=== PATIENT | female | born 1980 | race Caucasian/White ===

== ENCOUNTER 2016-08-25 04:55 | Emergency (ER) | payer OTHER ==
[~2016-08-25 04:55] MED LIST: BACTRIM DS TABL1 TA1 PO; CIPRO PO; CIPRO XR 500 M500 MG PO; CITRATE OF MAG300 ML PO; CORTISPORIN-TC10 M1 AD; DOCUSATE SODIU100 MG PO; FLEXERIL10 MG PO; IMPLANON68 MG/IMPL; KEFLEX500 M2 PO; LORTAB 5/500 TA1 TA1 PO; MIRALAX17 GM PO; NO MEDICATIONS; ORUDIS75 M1 DOB; ORUDIS75 M1 PO; PERCOCET PO; PHENERGAN25 M1 PO; PHENERGAN25 MG PO; SEROQUEL PO; TYLOX 5/500 CAP1 CAP PO; VOLTAREN50 MG PO; VOLTAREN75 MG PO; [UNRECOGNIZED DRUG - REMARK]
== END 2016-08-25 05:02 | disposition home or self-care (01) ==
LOC: SED 04:55
DX: J20.9 Acute bronchitis, unspecified (principal); F17.210 Nicotine dependence, cigarettes, uncomplicated
CPT/HCPCS: 99283

== ENCOUNTER 2016-08-26 22:28 | Emergency (ER) | payer OTHER | END 2016-08-26 23:15 | disposition home or self-care (01) | LOC: SED 22:28 | DX: J04.0 Acute laryngitis (principal); J02.9 Acute pharyngitis, unspecified; B97.89 Other viral agents as the cause of diseases classified elsewhere; F17.200 Nicotine dependence, unspecified, uncomplicated | CPT/HCPCS: 87651; 99282 ==

== ENCOUNTER 2016-08-31 04:11 | Emergency (ER) | payer MEDICAID | END 2016-08-31 04:20 | disposition left against medical advice (07) | LOC: CED 04:11 | DX: Z53.21 Procedure and treatment not carried out due to patient leaving prior to being seen by health care provider (principal) ==